=== PATIENT | male | born 1995 | race Caucasian/White ===

== ENCOUNTER 2025-03-05 10:23 | Emergency (ER) | payer SELFPAY ==
[~2025-03-05] VITALS: Ht 170.2 cm; Wt 80.0 kg
[2025-03-05 10:26] VITALS: O2SAT 99
[2025-03-05] MEDS: TETANUS, DIPHTHERIA, PERTUSSIS VAC/PF 0.5ML (>10YR OLD) IM ONE (11:32)
[2025-03-05] MEDS: ACETAMINOPHEN 325MG TABLET PO ONE (11:37)
[2025-03-05] MEDS: LIDOCAINE HCL/PF 1% 10 MG/ML 5ML VIAL INFIL ONE (11:37)
[2025-03-05] MEDS: BACITRACIN ZINC OINT UDPKT TOP ONE (11:38)
[2025-03-05] MEDS: MORPHINE SULFATE 4 MG/ML INJ (FOR IV/IM USE) IV STA (11:38)
[2025-03-05] MEDS: ONDANSETRON HCL 4MG/2ML INJ IV STA (11:38)
[2025-03-05] MEDS: MORPHINE SULFATE 4 MG/ML INJ (FOR IV/IM USE) IM ONE (11:41)
[2025-03-05] MEDS: KETOROLAC 30MG/ML VIAL IM ONE (11:45)
[2025-03-05] MEDS: ONDANSETRON 4MG ODT PO ONE (11:45)
[2025-03-05] MEDS ORDERED: BO1 TP (12:34)
[2025-03-05] MEDS ORDERED: ACET-2708 MT (12:34)
[2025-03-05 13:56] VITALS: BP 116/86; PULSE 57; RESP 16; TEMP 36.8; O2SAT 99
== END 2025-03-05 13:55 | disposition home or self-care (01) ==
LOC: ER 10:23
DX: S61.213A Laceration without foreign body of left middle finger without damage to nail, initial encounter (principal)
CPT/HCPCS: 99284; 96374; 73130; 90715; 90471; 96372; J2003; J2405; J2270